=== PATIENT | male | born 1965 | race Caucasian/White ===

== ENCOUNTER 2024-12-02 13:41 | Emergency (ER) | payer OTHER, SELFPAY ==
[2024-12-02 13:48] VITALS: BP 141/99
--- NOTE | 2024-12-02 13:48 | ED.GENMED ---
ED Provider Triage
<Abhi Berkowitz PA-C - Last Filed: 12/02/24 13:50>
-
Patient seen by provider in Triage?: Seen in Triage
Attestation: A medical screening examination has been initiated by a qualified medical provider. Based on the assessment performed at this time, it has been determined that an emergent medical condition may exist and the patient has been informed
that further medical evaluation and possible additional diagnostic testing may be needed.
HPI: 59-year-old male presenting the emergency department for evaluation of flulike symptoms that began this past Saturday evening into Saturday morning. Today patient started to feel little bit worse, syncopized, attempted to go to primary care
provider but was recommended to either go to urgent care or the ER. Patient went to urgent care and was recommended to come immediately to the ER. No workup was done at the urgent care. Patient was given a prescription for doxycycline by primary
care provider but he did not start taking this. Labs, EKG, COVID/flu testing ordered.
GENERAL: Alert , in no apparent distress
EYE: No visual abnormalities.
NECK: Trachea midline
ENT: No visible abnormalities.
LUNGS: No acute respiratory distress
NEUROLOGICAL: Alert and oriented
SKIN: Skin intact. No visible changes.
MUSCULOSKELETAL: Moving extremities normally
PSYCH: Normal and appropriate interaction.
This is a medical evaluation conducted in person to initiate diagnostic evaluation and provide initial therapeutics. Please see further documentation by the treating clinician.
History of Present Illness
<Abhi Berkowitz PA-C - Last Filed: 12/02/24 13:50>
General
Chief Complaint: Fainting/Passed Out
Time Seen by Provider: 12/02/24 15:46
<Alen Lowe MD - Last Filed: 12/02/24 20:18>
History of Present Illness
History of Present Illness:
Patient presents to the emergency department with flulike illness, syncope and dizziness. Has been sick for the past 4 days. Notes chills myalgias cough nasal congestion. He was very lightheaded today and stood up and felt he was going to pass
out. His doctor started him on doxycycline which she has not started taking it.
Phy Exam
<Alen Lowe MD - Last Filed: 12/02/24 20:18>
Physical Exam
Physical Exam:
GENERAL APPEARANCE: Bundled up, uncomfortable appearing
EYES lids/conjunctiva normal
EARS/NOSE/THROAT audible nasal congestion, oropharyngeal exam is normal
HEAD/NECK normocephalic atraumatic, neck is supple.
RESPIRATORY respiratory effort normal, speaks in full sentences, no accessory muscle use. Lungs clear to auscultation without rhonchi, wheezes, rales
CARDIAC Regular rate and rhythm, no edema.
ABDOMINAL Soft, ND/NT. No pulsatile masses on exam, rebound tenderness, Pisano sign or pain over Mcburney's point.
MUSCLES/EXTREMITIES No abnormal range of motion, no swelling.
SKIN Warm, pink and dry. No rashes
NEUROLOGICAL Speech is clear and appropriate. Normal level of consciousness. 5/5 strength in all extremities.
PSYCH Normal mood and affect. Judgement/competence is appropriate
Course
<Abhi Berkowitz PA-C - Last Filed: 12/02/24 13:50>
Orders/Labs/Results
Orders:
Orders
12/02/24 13:42
ECG [Electrocardiogram (*1)] Urgent
Reason for Study: Syncope
EKG- Treatment ONCE
12/02/24 14:05
Basic Metabolic Panel Urgent
COVID-19 Antigen Urgent
Source: Nasal Swab
Complete Blood Count/With Diff Urgent
Influenza A+B Rapid Molecular Urgent
JOSE ELIAS Source: Nasal Swab
Specimen Description:
12/02/24 16:06
0.9% Sodium Chloride 1000 ml [Nss] 1,000 ml IV BOLUS
CR Chest - 2 Views Urgent
Comment:
Reason For Exam: syncope
12/02/24 16:52
Troponin I Urgent
12/02/24 17:25
Acetaminophen [Tylenol] 1,000 mg PO NOW STA
Abnormal Lab Results
12/02/24
14:05
RBC 4.66 L 10^6/uL
(4.70-6.10)
MCH 31.5 H pg
(27.0-31.0)
Absolute Neuts (auto) 6.8 H 10^3/uL
(1.4-6.5)
Absolute Lymphs (auto) 0.5 L 10^3/uL
(1.2-3.4)
Neutrophils % 87.9 H %
(42.2-75.2)
Lymphocytes % 6.7 L %
(20.5-51.1)
Sodium 133 L mmol/L
(135-145)
Glucose 116 H mg/dl
(70-99)
Calcium 8.0 L mg/dl
(8.4-10.2)
12/02/24 14:05
12/02/24 14:05
Vital Signs
Initial and Last Documented VS:
Initial Vital Signs
Temp Pulse Resp BP Pulse Ox
97.7 F 92 18 141/99 97
12/02/24 13:48 12/02/24 13:48 12/02/24 13:48 12/02/24 13:48 12/02/24 13:48
Last Documented Vital Signs
Temp Pulse Resp BP Pulse Ox
97.7 F 92 18 141/99 97
12/02/24 13:48 12/02/24 13:48 12/02/24 13:48 12/02/24 13:48 12/02/24 13:48
<Alen Lowe MD - Last Filed: 12/02/24 20:18>
Orders/Labs/Results
Orders:
Orders
12/02/24 13:42
ECG [Electrocardiogram (*1)] Urgent
Reason for Study: Syncope
EKG- Treatment ONCE
12/02/24 14:05
Basic Metabolic Panel Urgent
COVID-19 Antigen Urgent
Source: Nasal Swab
Complete Blood Count/With Diff Urgent
Influenza A+B Rapid Molecular Urgent
JOSE ELIAS Source: Nasal Swab
Specimen Description:
12/02/24 16:06
0.9% Sodium Chloride 1000 ml [Nss] 1,000 ml IV BOLUS
CR Chest - 2 Views Urgent
Comment:
Reason For Exam: syncope
12/02/24 16:52
Troponin I Urgent
12/02/24 17:25
Acetaminophen [Tylenol] 1,000 mg PO NOW STA
Abnormal Lab Results
12/02/24
14:05
RBC 4.66 L 10^6/uL
(4.70-6.10)
MCH 31.5 H pg
(27.0-31.0)
Absolute Neuts (auto) 6.8 H 10^3/uL
(1.4-6.5)
Absolute Lymphs (auto) 0.5 L 10^3/uL
(1.2-3.4)
Neutrophils % 87.9 H %
(42.2-75.2)
Lymphocytes % 6.7 L %
(20.5-51.1)
Sodium 133 L mmol/L
(135-145)
Glucose 116 H mg/dl
(70-99)
Calcium 8.0 L mg/dl
(8.4-10.2)
12/02/24 14:05
12/02/24 14:05
Vital Signs
Initial and Last Documented VS:
Initial Vital Signs
Temp Pulse Resp BP Pulse Ox
97.7 F 92 18 141/99 97
12/02/24 13:48 12/02/24 13:48 12/02/24 13:48 12/02/24 13:48 12/02/24 13:48
Last Documented Vital Signs
Temp Pulse Resp BP Pulse Ox
97.7 F 92 18 141/99 97
12/02/24 13:48 12/02/24 13:48 12/02/24 13:48 12/02/24 13:48 12/02/24 13:48
<Alen Lowe MD - Last Filed: 12/02/24 20:18>
*Critical Care Note
Total Time (30-74mins, 75-104mins- exclusive of procedures): Not Applicable
ED Attending Note
<Abhi Berkowitz PA-C - Last Filed: 12/02/24 13:50>
-
Portions of this chart may have been created with voice recognition software.� Occasional wrong word or��sound alike� substitutions may have occurred due to the inherent limitations of voice recognition software.
<Alen Lowe MD - Last Filed: 12/02/24 20:18>
ED Attending Note
ED Attending Note:
Patient presents with flulike illness found to have influenza A. Also with episode of syncope and mild chest pain. Suspect dehydration in the setting of viral illness. Will rehydrate with IV fluids, check labs, troponin
Discharge Plan
Departure
Patient Disposition: Home (Routine Discharge)
Date of Disposition: 12/02/24
Time of Disposition: 17:37
Patient with high blood pressure during this ER visit?: Yes
Discharge Problem:
Influenza, Dehydration
Referrals:
UNKNOWN - PT DOES,NOT KNOW [Family Provider] -
Activity Restrictions/Additional Instructions:
Please follow-up with your doctor for recheck and repeat x-ray in the next week. Return to the emergency department with new or worsening symptoms.
Interventions
Interventions:
*Risk Screen - Suicide Last Done: 12/02/24 13:48
*General Assessment Last Done: 12/02/24 13:48
*Neglect/Abuse Screening Last Done: 12/02/24 13:48
*Nursing Disposition Last Done: 12/02/24 18:30
Discharge Date and Time
Discharge Date/Time: 12/02/24 18:30
Print Language: THAI
[2024-12-02 14:27] LABS: % Basophils 0.3 % (0-2); % Immature Granulocytes 0.4 % (0-0.5); % Lymphocytes 6.7 % (20.5-51.1); % Monocytes 4.7 % (1.7-9.3); % Neutrophils 87.9 % (42.2-75.2); Absolute Lymphocytes 0.5 10^3/uL (1.2-3.4); Absolute Monocytes 0.4 10^3/uL (0.1-0.6); Absolute Neutrophils 6.8 10^3/uL (1.4-6.5); Hematocrit 40.8 % (39.0-52.0); Hemoglobin 14.7 g/dL (13.0-18.0); Mean Corpuscular Hgb 31.5 pg (27.0-31.0); Mean Corpuscular Volume 87.6 fL (80.0-94.0); Nucleated Red Blood Cells % 0 % (-); Red Blood Cell Count 4.66 10^6/uL (4.70-6.10); Red Cell Dist. Width 13.2 % (11.5-14.5); White Blood Cell Count 7.7 10^3/uL (4.8-10.8)
[2024-12-02 14:38] LABS: COVID-19 Antigen Negative (Negative)
[2024-12-02 14:40] LABS: Blood Urea Nitrogen 12 mg/dl (9-20); Carbon Dioxide 23 mmol/L (22-30); Chloride 99 mmol/L (98-107); Glucose 116 mg/dl (70-99); Sodium 133 mmol/L (135-145); eGFR > 60.00
[2024-12-02 14:52] LABS: Mean Platelet Volume 10.2 fL (7.4-10.4); Platelet Count 132 10^3/uL (130-400)
[2024-12-02] MEDS: NSS 1000 IV (16:52)
[2024-12-02 17:24] LABS: Troponin I < 0.012 ng/ml
[2024-12-02] MEDS: TYLENOL 1000 MG PO (17:47)
== END 2024-12-02 18:30 | disposition home or self-care (01) ==
LOC: EMR 13:41
PROVIDERS: Physician Assistant Medical; EMERGENCY PHYSICIAN Emergency Medicine
DX: J10.1 Influenza due to other identified influenza virus with other respiratory manifestations (principal); E86.0 Dehydration
CPT/HCPCS: 99284; 96360; 71046; 80048; 84484; 85025; 87502; 87811; 93005

== ENCOUNTER 2025-05-18 12:26 | Inpatient (IN) | payer OTHER, SELFPAY ==
[2025-05-16] VITALS (8 sets, daily range): BP systolic 119–146; BP diastolic 78–93; BMI 28.7; BMI 28.6
--- NOTE | 2025-05-16 15:02 | ED.GENMED ---
History of Present Illness
General
Chief Complaint: Cough
Source: patient
Exam Limitations: none
Time Seen by Provider: 05/16/25 14:13
Nursing documentation reviewed up to this point in time: agreed with
History of Present Illness
History of Present Illness:
Patient to ED with complaint of worsening cough. Symptoms started approx 6 days ago while vacationing in [place]. He completed a zpack today without improvement. Saturday he went to , tested neg for covid, given a nebulaizer treatement. today he
returned to because symptoms were worsening. Sent to ED because of low pulse ox. Pulse ox on room air 90% at rest. Reports fever for the first 2 days, no fever since. Denies any cp/pressure. Coughing up brown secretions. Brought self to ED
for eval.
Past History
Past History
ED Past Medical History: CAD, Hypercholesterolemia and [place] (2020)
ED Past Surgical History: Appendectomy
Social History
Tobacco: Non-smoker
Alcohol: Occasional
Review of Systems
Review of Systems
Allergies reviewed?: Yes
All Other Systems: ROS reviewed and negative except as documented in HPI and ROS
Constitutional: Reports no symptoms
EENT: Reports no symptoms
Respiratory: Reports cough and trouble breathing
Cardiac: Reports no symptoms
ABD/GI: Reports no symptoms
: Reports no symptoms
Musculoskeletal: Reports no symptoms
Skin: Reports no symptoms
Neurological: Reports no symptoms
Psychiatric: Reports no symptoms
Phy Exam
General Physical Exam
General Presentation: mild distress
General age: appears stated age
General Skin: warm
General Habitus: normal
General Mental: alert
Cardiovascular Exam
Cardiovascular Exam: regular rate/rhythm
Pulmonary Exam
Pulmonary Exam: no rales, chest non tender, no rhonchi and other (decreased breathsounds bilateral bases)
Musculoskeletal Exam
Musculoskeletal Exam: neuro vasc intact
Skin Exam
Skin Exam: normal color, warm/dry and no rash
Psychiatric Exam
Psychiatric Exam: normal mood/affect
Course
Orders/Labs/Results
Orders:
Orders
05/16/25 14:58
CR Chest - 2 Views Urgent
Comment:
Reason For Exam: SOB, cough
05/16/25 Dinner
Cholesterol Lowering
At Your Request: Limited Participation
Does patient need a safe tray?: No
Cholesterol Lowering: Sodium, 2 Gram
05/16/25 15:38
COVID-19 Antigen Urgent
Source: Nasal Swab
Complete Blood Count/With Diff Urgent
Comprehensive Metabolic Panel Urgent
Influenza A+B Rapid Molecular Urgent
JOSE ELIAS Source: Nasal Swab
Specimen Description:
05/16/25 17:42
CefTRIAXone [Rocephin] 2,000 mg IV NOW STA
Doxycycline [Vibramycin] 100 mg PO NOW STA
05/16/25 17:48
Sterile Water [Sterile Water For Injection] 20 ml .ROUTE .STK-MED
05/16/25 18:23
Procalcitonin Stat
If negative, will antibiotics be d/c'd or not started: Yes
Does the patient have renal or hepatic impairment?: No
Any recent (w/in 48 hrs) physiologic stress (CPR, rhabdo): No
05/16/25 18:41
Admit/Transfer Patient As Directed
Co-Sign Provider:
Level of Care: Observation services
Assign to:: Medical/Surgical
Physician / Group: Dennis Moctezuma
Diagnosis: PNA vs reactive airways
Code Status As Directed
Resuscitation Status: Full Code
PRN Pain Medication Management As Directed
May give lesser potent ordered pain med per pt: Yes
preference::
Protocol:: Medication orders for pain may be administered in a
manner that supports deferring to patient preference
when the pt is:
- Requesting an ordered lesser potent pain medication.
Least to most potent pain medications are defined
as: acetaminophen < NSAID < tramadol < opioids
(morphine, oxycodone, hydromorphone).
- Requesting a lesser dose of the same medication IF
ORDERED.
- Requesting a less intrusive route of administration
if both routes are prescribed by the provider (PO <
IV).
05/16/25 20:10
Acetaminophen [Tylenol] 650 mg PO Q4HPRN PRN
Enoxaparin Sodium [Lovenox] 40 mg SC QPM
Guaifenesin/Codeine Solution [Robitussin AC] 10 ml PO Q4HPRN PRN
Ipratropium/Albuterol Sulfate [Duoneb] 3 ml INH R QID
Ondansetron Injectable [Zofran] 4 mg IV Q6HPRN PRN
05/16/25 20:10
PULMONARY CONSULT Routine
Consulting Provider: Yohannes Gusman
Was physician already notified: Yes
Reason for consult: PNA vs reactive airways
Activity As Directed
Activity Level: Out of Bed-Early Mobility
Intake/ Output As Directed
Frequency: Per unit guidelines
Vital Signs As Directed
Frequency: Per unit guidelines
Weight As Directed
Frequency: Once
Comment: on admission
O2 Therapy [RESP] Routine
Nasal Cannula Liter Flow: 2 LPM
Titrate/Wean O2 to maintain O2 sat greater than (%): 92
Special Instructions: Wean as tolerated
DX Deep Vein Thrombosis Video Routine
05/17/25 06:00
Basic Metabolic Panel IN AM
Complete Blood Count/With Diff IN AM
05/17/25 08:00
Doxycycline [Vibramycin] 100 mg PO BID
05/17/25 16:00
CefTRIAXone [Rocephin] 1,000 mg IV Q24H
Abnormal Lab Results
05/16/25 05/16/25
15:38 18:23
RBC 4.08 L 10^6/uL
(4.70-6.10)
Hgb 12.8 L g/dL
(13.0-18.0)
Hct 36.0 L %
(39.0-52.0)
MCH 31.4 H pg
(27.0-31.0)
Abs Immat Gran (auto) 0.4 H 10^3/uL
(0-0.05)
Absolute Monos (auto) 0.8 H 10^3/uL
(0.1-0.6)
Immature Gran % 3.9 H %
(0-0.5)
Lymphocytes % 20.2 L %
(20.5-51.1)
Chloride 109 H mmol/L
(98-107)
Glucose 109 H mg/dl
(70-99)
ALT 52 H U/L
(0-50)
Procalcitonin 7.12 H* ng/ml
(0.0-0.25)
05/16/25 15:38
05/16/25 15:38
Vital Signs
Initial and Last Documented VS:
Initial Vital Signs
Temp Pulse Resp BP Pulse Ox
98.7 F 86 18 119/80 95
05/16/25 13:28 05/16/25 13:28 05/16/25 13:28 05/16/25 13:28 05/16/25 13:28
Last Documented Vital Signs
Temp Pulse Resp BP Pulse Ox
98.0 F 75 20 130/80 94
05/16/25 20:15 05/16/25 22:06 05/16/25 21:19 05/16/25 22:06 05/16/25 21:19
*Radiology
Radiology exam reviewed: radiology read reviewed
*Pulse Oximetry
SaO2: 93
Oxygen Mode of Delivery: Room air
Patient hypoxic: yes
Comment: 90% RA at rest
*Critical Care Note
Total Time (30-74mins, 75-104mins- exclusive of procedures): Not Applicable
Update Note
Update Note:
Patient to ED with complaint of worsening cough, low pulse ox. Cough started 6 days ago .Completed course of azythromycin without improvement. CXR tonight with RLL opacity. Pulse ox 90%Ra at rest. He remains afebrile. Will admit to hospitalist.
Iv antibiotics started in ED.
ED Attending Note
-
Portions of this chart may have been created with voice recognition software.� Occasional wrong word or��sound alike� substitutions may have occurred due to the inherent limitations of voice recognition software.
Discharge Plan
Departure
Patient Disposition: Admit
Date of Disposition: 05/16/25
Time of Disposition: 18:00
Presentation/result/management discussed w/ accepting MD/DO: Hospitalist
Patient with high blood pressure during this ER visit?: No
Condition: Fair
Covid-19: Not Applicable
Discharge Problem:
Pneumonia, Hypoxemia
Interventions
Interventions:
*Risk Screen - Suicide Last Done: 05/16/25 13:28
*General Assessment Last Done: 05/16/25 13:28
*Neglect/Abuse Screening Last Done: 05/16/25 13:28
*ED- Fall Risk Assessment Last Done: 05/16/25 14:23
*ED COVID-19 Vaccine History Last Done: 05/16/25 14:23
*Nursing Disposition Last Done: 05/16/25 20:00
ED- Pulmonary Assessment Last Done: 05/16/25 15:44
Discharge Date and Time
Discharge Date/Time: 05/16/25 20:19
[2025-05-16 16:03] LABS: Hematocrit 36.0 % (39.0-52.0); Hemoglobin 12.8 g/dL (13.0-18.0); Mean Corp Hgb Conc. 35.6 g/dL (33.0-37.0); Mean Corpuscular Volume 88.2 fL (80.0-94.0); Platelet Count 196 10^3/uL (130-400); Red Cell Dist. Width 13.4 % (11.5-14.5)
[2025-05-16 16:04] LABS: COVID-19 Antigen Negative (Negative)
[2025-05-16 16:14] LABS: ALT (SGPT) 52 U/L (0-50); AST (SGOT) 36 U/L (17-59); Albumin 3.9 g/dl (3.5-5.0); Alkaline Phosphatase 107 U/L (38-126); Blood Urea Nitrogen 18 mg/dl (9-20); Calcium 8.8 mg/dl (8.4-10.2); Carbon Dioxide 26 mmol/L (22-30); Chloride 109 mmol/L (98-107); Estimated Creatinine Clearance 106 ml/min; Glucose 109 mg/dl (70-99); Potassium 4.0 mmol/L (3.5-5.1); Sodium 140 mmol/L (135-145); Total Protein 6.9 g/dl (6.3-8.2); eGFR > 60.00
[2025-05-16 16:40] LABS: Nucleated Red Blood Cells % 0 % (-)
[2025-05-16] MEDS: ROCEPHIN 2000 MG IV (17:56)
[2025-05-16] MEDS: VIBRAMYCIN 100 MG PO (17:56)
--- NOTE | 2025-05-16 18:02 | HPS.HSE ---
Family Physician
-
Family Physician: Sola Zuleta
Chief Complaint
-
cough
History of Present Illness
History obtained via [employer] [id number]:
59 y/o M with PMHx:
CAD with h/o IN
HLD
who p/w CC cough. The patient has had cough for 6 days. 6 days ago he had a fever of 40 �C. He had brown sputum production 6 days ago. He was then placed on azithromycin which she completed today. Once he started the antibiotic he had no
further sputum production. He reports shortness of breath more notable with exertion. He reports chest pressure when he coughs. He does mention that he has had 'lung issues' since he had COVID. At that time he also had a myocardial infarction.
Denies any other acute complaints.
Medical History
Past Medical History
Past Medical History: Reports Other (as per HPI)
Past Surgical History: Reports Other (N/A)
Social History
Tobacco: Non-smoker
Alcohol: Occasional
Drug: None
Family History
Family History: Not pertinent
Allergies / Home Medications
Allergies reflects when Allergies were last updated in [facility].
Home Medications with original date entered in [facility]
Allergy/Medication List:
Allergies
Allergy/AdvReac Type Severity Reaction Status Date / Time
No Known Allergies Allergy Verified 05/16/25 13:27
Med rec is pending
If medication reconciliation has not been performed, why?: Other
If Other, explain: pending, RN currently obtaining home meds
Review of Systems
-
History Source: Patient
A 12 point ROS was completed and negative except as noted: Yes
Physical Exam
Vital Signs
Vital Signs
Temp Pulse Resp BP Pulse Ox
98.7 F 86 18 133/89 96
05/16/25 13:28 05/16/25 13:28 05/16/25 13:28 05/16/25 16:00 05/16/25 17:00
Physical Exam
General: Other (.)
Laboratory Results
-
05/16/25 15:38
05/16/25 15:38
Laboratory Results
Total Bilirubin 0.6 mg/dl (0.2-1.3) 05/16/25 15:38
AST 36 U/L (17-59) 05/16/25 15:38
ALT 52 U/L (0-50) H 05/16/25 15:38
Alkaline Phosphatase 107 U/L (38-126) 05/16/25 15:38
Impression/Plan
-
Gen: NAD, AAOx3.
Eyes: EOMI, PERRLA, no scleral icterus.
Neck: supple.
CV: RRR, +S1/S2, no m/r/g.
Resp: CTAB, no rales, wheezes, or rhonchi.
Abd: +BS, soft, NT, ND
Skin: No rashes.
Neuro: CN 2-12 intact, non-focal.
Psych: Normal mood and affect.
CXR: Medial right basilar opacity, although similar compared to previous examinations. Considerations include atelectasis, scarring, and/or pneumonia.
Possible R basilar PNA:
-CXR above
-afebrile, no leukocytosis, COVID/Flu NEG
-90% on RA in ER, requiring 2L NC O2
-ED Tx: Rocephin/Doxy
-Duonebs Q6H standing
-Robitussin-AC for cough suppression
-wean NC O2 as tolerated
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
-cont Rocephin/doxy for now pending procal. Considering the pt completed 5 days of azithromycin I doubt the patient has bacterial pneumonia at this time. He likely has reactive airway disease/residual bronchitis at this time.
Other problems:
CAD with h/o IN: awaiting med rec
HLD: awaiting med rec
FULL/Lovenox
[2025-05-16 19:09] LABS: Procalcitonin 7.12 ng/ml (0.0-0.25)
[2025-05-16] MEDS: DUONEB 3 ML INH (21:13)
--- NOTE | 2025-05-16 22:00 | PTCARENOTE ---
Receive pt from ER. Pt alert oriented X3, calm and cooperative. Pt assist X1 to bed. Steady gait. Pt oriented to the room, call chahal within reach. Pt complains about SOB and non productive cough. Pt SpO2=94-97% on 2L NC. VSS (T=98, HR=75, RR=20,
RH=784/80). Pt is Ukranian, Malian speaking. Pt's health HX provided bt daughter Odalis. Assessment and plan of care conducted using retail coverage merchandiser (Patel ([id number])). Will continue to monitor the pt.
[2025-05-16] MEDS: LOVENOX 40 MG SC (22:05)
[2025-05-16] MEDS: LOPRESSOR 25 MG PO (22:06)
[2025-05-16] MEDS: ROBITUSSIN AC 10 ML PO (23:24)
[2025-05-17] MEDS: DUONEB 3 ML INH ×4 (06:13→17:37)
[2025-05-17 07:10] LABS: Hematocrit 36.6 % (39.0-52.0); Hemoglobin 12.9 g/dL (13.0-18.0); Mean Corp Hgb Conc. 35.2 g/dL (33.0-37.0); Mean Corpuscular Volume 88.6 fL (80.0-94.0); Platelet Count 200 10^3/uL (130-400); Red Cell Dist. Width 13.2 % (11.5-14.5)
[2025-05-17 07:36] LABS: Blood Urea Nitrogen 17 mg/dl (9-20); Calcium 8.7 mg/dl (8.4-10.2); Carbon Dioxide 24 mmol/L (22-30); Chloride 109 mmol/L (98-107); Estimated Creatinine Clearance 94 ml/min; Glucose 124 mg/dl (70-99); Nucleated Red Blood Cells % 0 % (-); Potassium 3.8 mmol/L (3.5-5.1); Sodium 139 mmol/L (135-145); eGFR > 60.00
[2025-05-17 07:45] VITALS: BP 128/76
[2025-05-17] MEDS: CRESTOR 10 MG PO (08:03)
[2025-05-17] MEDS: LOPRESSOR 25 MG PO ×2 (08:03→19:49)
[2025-05-17] MEDS: VIBRAMYCIN 100 MG PO ×2 (08:03→19:49)
[2025-05-17] MEDS: ASPIR LOW (ENTERIC COATED) 81 MG PO (08:03)
--- NOTE | 2025-05-17 09:01 | W.PN.HOSP.TC ---
Today's Communication/Plan
-
Continue antibiotics
Assessment / Plan
Assessment / Plan
HPI: 59-year-old male with previous history of CAD, hyperlipidemia presenting to ER for complaints of shortness of breath and cough. He reportedly had the cough for the past 6 days with productive sputum of brown mucus, placed on antibiotics as
an outpatient. He does not feel his shortness of breath was improving. Had chest x-ray completed demonstrating possible pneumonia with follow-up CT demonstrating multifocal opacities in bilateral bases. He feels he has had on and off intermittent
shortness of breath following COVID illness several years ago.
Denies any prior known history of lung disease in the past, essentially lifelong non-smoker. He had less than 1 year smoking history in the . He denies any known exposures. He denies family history of lung disease. He denies seasonal
allergies. He has been living in the [place] for the past 20 to 30 years.
#Acute hypoxic respiratory insufficiency
#Pneumonia, failed outpatient therapy
Pulmonology following, influenza/COVID-negative
Continue Rocephin/doxycycline day 2, bronchodilators
Check urinary strep/Legionella antigens
Currently requiring 1 L of oxygen, down from 2. Wean as tolerated
#Coronary artery disease
Continue aspirin, statin, beta-[place]
DVT prophylaxis�subcu Lovenox
Full code
Total time spent to see the patient on the floor, examine the patient, review data and lab results, discuss treatment plan with patient, nursing staff around 45 minutes.
Physical Exam
General: No acute distress
HEENT: Normocephalic, Atraumatic, EOMI, MMM
Respiratory: Coarse breath sounds with occasional expiratory wheezing
Cardiac: Normal S1/S2, Regular Rate and Rhythm
GI: Soft, Nontender, Nondistended, Normal Bowel Sounds
Extremities: No Clubbing, Cyanosis, or Edema
Neuro: Nonfocal/Grossly Intact
Psych: Calm, Cooperative
Derm: No Visible lesions
Anticipated Discharge: 24 - 48 hours
Subjective/Interval History
-
Date of Service: May 17, 2025
Patient continues to cough, be short of breath. Shortness of breath mildly improved from admission. No fever, no vomiting.
Objective Data
-
Labs:
Laboratory Results
05/17/25
06:24
WBC 8.1
Hgb 12.9 L
Hct 36.6 L
Plt Count 200
Sodium 139
Potassium 3.8
Chloride 109 H
Carbon Dioxide 24
BUN 17
Creatinine 0.9
Glucose 124 H
Calcium 8.7
Vital Signs:
Vital Signs
Temp Pulse Resp BP Pulse Ox
97.5 F 77 16 128/76 94
05/17/25 07:45 05/17/25 08:03 05/17/25 07:45 05/17/25 08:03 05/17/25 07:45
I&O
05/16/25 05/17/25 05/18/25
06:59 06:59 06:59
Intake Total 480 / 480
Balance 480 / 480
--- NOTE | 2025-05-17 09:33 | CON.PUL ---
Consultation
Consultation Request
Date/Time Consultation Requested: 05/17/25
Date/Time Consultation Performed: 05/17/25
Performing Provider: Kelsey
Reason for Consultation: SOB
Medical History
-
History of Present Illness:
Patient is a 59-year-old male with previous history of CAD, hyperlipidemia presenting to ER for complaints of shortness of breath and cough. He reportedly had the cough for the past 6 days with productive sputum of brown mucus, placed on
antibiotics as an outpatient. He does not feel his shortness of breath was improving. Had chest x-ray completed demonstrating possible pneumonia with follow-up CT demonstrating multifocal opacities in bilateral bases. He feels he has had on and
off intermittent shortness of breath following COVID illness several years ago.
Denies any prior known history of lung disease in the past, essentially lifelong non-smoker. He had less than 1 year smoking history in the . He denies any known exposures. He denies family history of lung disease. He denies seasonal
allergies. He has been living in the [facility] for the past 20 to 30 years.
Past Medical History
Past Medical History: Other (see list below)
Social History
Tobacco: Non-smoker
Alcohol: None
Drug: None
Allergies / Home Medications
Allergies
Allergy/AdvReac Type Severity Reaction Status Date / Time
No Known Allergies Allergy Verified 05/16/25 13:27
Home Medications
�Medication �Instructions �Recorded �Confirmed �Last Taken �Type
albuterol sulfate 90 mcg/actuation 2 puff inhalation R BID 05/16/25 05/16/25 05/15/25 History
aerosol inhaler Lung/Breathing Issues
amoxicillin 875 mg tablet 875 mg PO BID Infection 05/16/25 05/16/25 05/16/25 History
aspirin 81 mg tablet,delayed 81 mg PO DAILY Blood Clot 05/16/25 05/16/25 05/16/25 History
release Prevention/Tx
azithromycin 250 mg tablet 250 mg PO DAILY Infection 05/16/25 05/16/25 05/16/25 History
ibuprofen 600 mg tablet 600 mg PO DAILYPRN PRN mild pain 05/16/25 05/16/25 Unknown History
metoprolol tartrate 25 mg tablet 25 mg PO BID Blood Pressure 05/16/25 05/16/25 05/16/25 History
omeprazole 40 mg capsule,delayed 40 mg PO DAILYPRN PRN gerd 05/16/25 05/16/25 Unknown History
release
rosuvastatin 10 mg tablet 10 mg PO DAILY High Cholesterol 05/16/25 05/16/25 05/16/25 History
Review of Systems
-
History Source: Patient
All other systems: Negative unless noted
Vitals / Labs / Diagnostic Testing
Vital Signs
Temp Pulse Resp BP Pulse Ox
97.5 F 77 16 128/76 94
05/17/25 07:45 05/17/25 08:03 05/17/25 07:45 05/17/25 08:03 05/17/25 07:45
Lab Data
05/17/25 06:24
05/17/25 06:24
Microbiology
05/16/25 15:38 Nasal Swab Influenza Types A & B (RICHIE) - Final
Negative for Influenza A & B, NAAT
Negative results must be combined with clinical observations
and patient history.
Nucleic Acid Amplification test (NAAT)performed on the
[employer] platform.
Diagnostic Testing:
Physical Exam
-
HEENT: Normocephalic, Anicteric and Moist Mucous Membranes
Cardiovascular: S1/S2 and Regular Rhythm
Respiratory: Clear and Non-Labored Respirations
GI: Soft and Non Distended
Neurology: Awake, Alert, Oriented and No Motor Deficits
Skin: Warm, Dry and Good Color
General: Comfortable and Other (NAD)
Assessment
-
Patient is a 59-year-old male with previous history of CAD, hyperlipidemia presenting to ER for complaints of shortness of breath and cough. He reportedly had the cough for the past 6 days with productive sputum of brown mucus, placed on
antibiotics as an outpatient. He does not feel his shortness of breath was improving. Had chest x-ray completed demonstrating possible pneumonia with follow-up CT demonstrating multifocal opacities in bilateral bases. He feels he has had on and
off intermittent shortness of breath following COVID illness several years ago. We are consulted for evaluation 05/17/25.
Pneumonia, failed outpatient therapy
Acute hypoxic respiratory failure
Mild anemia
Shortness of breath
Conditions present prior to admission
History of COVID
Primary hypertension
Hyperlipidemia
Reflux
Plan
Has no prior history of O2 use at home
Denies any prior known history of lung disease in the past, essentially lifelong non-smoker.
He had less than 1 year smoking history in the . He denies any known exposures. He denies family history of lung disease.
He denies seasonal allergies. He has been living in the [place] for the past 20 to 30 years.
Suspect patient has multifocal pneumonia that failed outpatient treatment
He is currently on IV antibiotics
CXR/CT obtained indicating basilar predominant findings
Can add p.o. prednisone course as well if shortness of breath is ongoing
History of [place] in the past with hyperlipidemia
No echo for review
Recommend baseline testing
Smoking history noted--overall less than 1 year
Unlikely smoking related lung disease
There could be adult onset asthma following episode of COVID
Will need outpatient pulmonary evaluation in our office for PFTs and 6MWT
Reviewed with patient this could be pursued if patient is not improving
Risk factors assessed for underlying sleep disordered breathing also noted, recommend outpatient PSG/sleep evaluation
We will follow
Diagnostic Data
Chest X-Ray: 05/16/25-Medial right basilar opacity, although similar compared to previous examinations. Considerations include atelectasis, scarring, and/or pneumonia.
12/02/24- Small focus of parenchymal opacity in the medial and anterior aspect of the right lower lobe, main differential considerations of pneumonia and/or atelectasis. Pericardial fat pad is considered as a differential possibility, felt to be less
likely.
CT Scan: CHEST 05/17/25- Opacities, predominantly groundglass in the right middle lobe, lingula, right lower lobe and left lower lobe with some accompanying interstitial thickening, nonspecific, possibly inflammatory/infectious.
Echo:
PFT's:
Reports and relevant images were personally reviewed.
Total time spent on this consultation __76__ minutes which includes review of history, physical exam, medications, laboratory data, personal review of imaging, extensive review of outpatient records, discussion with care team and respiratory
therapy. Prolonged discussion using language line ham passer for Taiwanese-only speaking patient.
[2025-05-17 15:12] VITALS: O2SAT 91; O2SAT 95
[2025-05-17 15:50] VITALS: BP 115/69
[2025-05-17] MEDS: FLUSH (NSS) 1 FLUSH IV (16:09)
[2025-05-17] MEDS: ROCEPHIN 1000 MG IV (16:09)
[2025-05-17] MEDS: STERILE WATER FOR INJECTION 10 ML IV (16:09)
--- NOTE | 2025-05-17 16:35 | PTCARENOTE ---
Pt AAO x3, GRAY well, ambulatory in room/to BR; prosper well. Pt speaks Zambian, understands some Sri Lankan, utilizing language line with good effect. VSS. Currently on room air- pulse ox 97%, pt with (+) slight SCHWAB; denies SOB; has occ dry cough.
Abd soft, rounded, prosper :PO well. Voids in BR; aware of need for urine specimen. Afebrile; skin warm and dry. Resting in bed at present. Will continue to monitor.
--- NOTE | 2025-05-17 16:38 | CM ---
Met with patient (with information technology instructor) for assessment. Patient stated that he lives alone in a one story apartment with no steps to enter. He described himself as independent with his ADLs, personal care, dressing and bathing. He can do household
chores, cook, clean and do laundry. He drives and can get to all of his appointments and does all of his own shopping. He doesn't have any DME. He has never had VN. He has not been to a SNF.
He has a supportive daughter.
Patient has a prescription plan and uses, [facility] for all of his medications.
Patient's PCP is Sola Zuleta.
Plan: Case management will continue to follow and assist with discharge planning. OBS letter reviewed and signed. Patient will return home when stable.
[2025-05-17] MEDS: LOVENOX 40 MG SC (17:46)
[2025-05-17 23:24] VITALS: BP 130/83
[2025-05-18 08:07] VITALS: BP 134/82
[2025-05-18] MEDS: DUONEB 3 ML INH ×3 (08:23→19:37)
[2025-05-18] MEDS: LOPRESSOR 25 MG PO ×2 (08:33→20:07)
[2025-05-18] MEDS: VIBRAMYCIN 100 MG PO ×2 (08:33→20:07)
[2025-05-18] MEDS: ASPIR LOW (ENTERIC COATED) 81 MG PO (08:34)
[2025-05-18] MEDS: CRESTOR 10 MG PO (08:34)
--- NOTE | 2025-05-18 09:31 | W.PN.PUL3 ---
Today's Communication / Plan
-
Urine strep Ag +, narrow abx for presumed Strep PNA
Add PO prednisone for ongoing SOB
Repeat CXR in AM
All questions answered using [place]an trust manager assistant
Assessment
-
Patient is a 59-year-old male with previous history of CAD, hyperlipidemia presenting to ER for complaints of shortness of breath and cough. He reportedly had the cough for the past 6 days with productive sputum of brown mucus, placed on
antibiotics as an outpatient. He does not feel his shortness of breath was improving. Had chest x-ray completed demonstrating possible pneumonia with follow-up CT demonstrating multifocal opacities in bilateral bases. He feels he has had on and
off intermittent shortness of breath following COVID illness several years ago. We are consulted for evaluation 05/17/25.
Strep Pneumonia, failed outpatient therapy, Ur Ag+
Acute hypoxic respiratory failure
Mild anemia
Shortness of breath
Conditions present prior to admission
History of COVID
Primary hypertension
Hyperlipidemia
Reflux
Plan
Has no prior history of O2 use at home
Denies any prior known history of lung disease in the past, essentially lifelong non-smoker.
He had less than 1 year smoking history in the . He denies any known exposures. He denies family history of lung disease.
He denies seasonal allergies. He has been living in the [place] for the past 20 to 30 years.
Suspect patient has multifocal pneumonia that failed outpatient treatment
He is currently on IV antibiotics
Urine Ag + strep, narrow abx
CXR/CT obtained indicating basilar predominant findings
Will add p.o. prednisone course as patient notes no improvement
Repeat CXR in AM
History of [place] in the past with hyperlipidemia
No echo for review
Recommend baseline testing
Smoking history noted--overall less than 1 year
Unlikely smoking related lung disease
There could be adult onset asthma following episode of COVID
Will need outpatient pulmonary evaluation in our office for PFTs and 6MWT
Reviewed with patient this could be pursued if patient is not improving--this was reviewed again today
Risk factors assessed for underlying sleep disordered breathing also noted, recommend outpatient PSG/sleep evaluation
We will follow
Diagnostic Data
Chest X-Ray: 05/16/25-Medial right basilar opacity, although similar compared to previous examinations. Considerations include atelectasis, scarring, and/or pneumonia.
12/02/24- Small focus of parenchymal opacity in the medial and anterior aspect of the right lower lobe, main differential considerations of pneumonia and/or atelectasis. Pericardial fat pad is considered as a differential possibility, felt to be less
likely.
CT Scan: CHEST 05/17/25- Opacities, predominantly groundglass in the right middle lobe, lingula, right lower lobe and left lower lobe with some accompanying interstitial thickening, nonspecific, possibly inflammatory/infectious.
Echo:
PFT's:
Reports and relevant images were personally reviewed.
Total time spent on this consultation __54__ minutes which includes review of history, physical exam, medications, laboratory data, personal review of imaging, extensive review of outpatient records, discussion with care team and respiratory
therapy. Prolonged discussion using language line trust manager assistant for Sierra Leonean-only speaking patient.
Subjective Data
-
Date of Service:
Date of Service: May 18, 2025
Chief Complaint: Pulmonary Follow Up
Subjective:
Feels SOB is ongoing, no improvement even with nebs
S[place] Leonean trust manager assistant used with video call
Objective Data
Data Reviewed
Vital Signs / I&O / Oxygen:
Vital Signs
Temp Pulse Resp BP Pulse Ox
98.5 F 77 16 134/82 95
05/18/25 08:07 05/18/25 08:33 05/18/25 08:25 05/18/25 08:33 05/18/25 08:25
Intake and Output
05/17/25 05/18/25 05/19/25
06:59 06:59 06:59
Intake Total 480 / 480 960 / 960
Balance 480 / 480 960 / 960
SaO2 95
Nasal Cannula flow liters per 1
minute
Physical Exam
General: Comfortable and Other (NAD)
HEENT: Normocephalic, Anicteric and Moist Mucous Membranes
Cardiovascular: S1-S2 and Regular Rhythm
Respiratory: Clear (slight tightness with inhale, no wheeze) and Non-Labored Respirations
GI: Soft, Non Distended and Non Tender
Neurology: Awake, Alert, Oriented and No Motor Deficits
Skin: Warm, Dry and Good Color
Labs/Micro/Reports
Lab Data
05/17/25 06:24
05/17/25 06:24
Microbiology
05/17/25 19:58 Urine Legionella Urinary Antigen - Final
Negative for Legionella pneumophila Serogroup 1 antigen.
A negative result does not rule out the possiblity of
Legionella infection due to other serogroups or species of
Legionella. Clinical correlation is recommended.
05/17/25 19:58 Urine Streptococcus pneumoniae Antigen (M - Final
Positive for Strep pneumo Ag
05/16/25 15:38 Nasal Swab Influenza Types A & B (RICHIE) - Final
Negative for Influenza A & B, NAAT
Negative results must be combined with clinical observations
and patient history.
Nucleic Acid Amplification test (NAAT)performed on the
[employer] platform.
[2025-05-18] MEDS: DELTASONE 40 MG PO (12:51)
--- NOTE | 2025-05-18 13:39 | W.PN.HOSP.TC ---
Today's Communication/Plan
-
Echo, lower extremity Doppler, D-dimer
IV antibiotics
Home O2 assessment
Assessment / Plan
Assessment / Plan
HPI: 59-year-old male with previous history of CAD, hyperlipidemia presenting to ER for complaints of shortness of breath and cough. He reportedly had the cough for the past 6 days with productive sputum of brown mucus, placed on antibiotics as
an outpatient. He does not feel his shortness of breath was improving. Had chest x-ray completed demonstrating possible pneumonia with follow-up CT demonstrating multifocal opacities in bilateral bases. He feels he has had on and off intermittent
shortness of breath following COVID illness several years ago.
Denies any prior known history of lung disease in the past, essentially lifelong non-smoker. He had less than 1 year smoking history in the . He denies any known exposures. He denies family history of lung disease. He denies seasonal
allergies. He has been living in the [place] for the past 20 to 30 years.
#Acute hypoxic respiratory insufficiency
#Pneumonia, failed outpatient therapy
Overall improved and weaned off oxygen supplementation while at rest.
Ongoing complaints of persistent cough and chest pressure
Noted positive for strep pneumonia antigen
Increase activity and check ambulatory pulse ox prior to discharge
#Coronary artery disease
Continue aspirin, statin, beta-chico
Patient reports myocardial infarction around COVID infection.
No history of catheterization or endovascular intervention.
Reportedly recent stress test with no abnormalities
He brings complaining of exertional dyspnea prior to onset of this episode
For completeness of workup will check echocardiogram, lower extremity Doppler and D-dimer.
DVT prophylaxis�subcu Lovenox
Full code
Total time spent to see the patient on the floor, examine the patient, review data and lab results, discuss treatment plan with patient, nursing staff around 45 minutes.
Anticipated Discharge: 24 - 48 hours
Subjective/Interval History
-
Date of Service: May 18, 2025
Objective Data
-
Vital Signs:
Vital Signs
Temp Pulse Resp BP Pulse Ox
98.5 F 77 16 134/82 95
05/18/25 08:07 05/18/25 08:33 05/18/25 08:25 05/18/25 08:33 05/18/25 11:42
I&O
05/17/25 05/18/25 05/19/25
06:59 06:59 06:59
Intake Total 480 / 480 960 / 960
Balance 480 / 480 960 / 960
Physical Exam
-
General: Well Developed and No Apparent Distress
HEENT: Normocephalic, Atraumatic and Moist Mucous Membranes
Respiratory: Clear to Auscultation
Cardiac: Regular Rhythm and S1/S2; Negative Murmur, Rub or Gallop
GI: Soft, Nontender, Nondistended and Normal Bowel Sounds; Negative Organomegaly
Rectal: Deferred by Provider
Musculoskeletal: No Clubbing, No Cyanosis and No Edema
Skin: Negative Rash
Neuro: Nonfocal/Grossly Intact
[2025-05-18 14:06] LABS: D-Dimer 0.76 ug/mlFEU (0.00-0.50)
[2025-05-18] MEDS: DUONEB INH (15:30)
[2025-05-18 16:03] VITALS: BP 132/80
[2025-05-18] MEDS: STERILE WATER FOR INJECTION 10 ML IV (17:18)
[2025-05-18] MEDS: LOVENOX 40 MG SC (17:19)
[2025-05-18] MEDS: ROCEPHIN 1000 MG IV (17:19)
[2025-05-18] MEDS: ROBITUSSIN AC 10 ML PO (21:31)
[2025-05-18 23:03] VITALS: BP 121/72
[2025-05-19 07:40] VITALS: BP 118/70
[2025-05-19] MEDS: DUONEB 3 ML INH ×3 (07:52→15:18)
[2025-05-19] MEDS: ASPIR LOW (ENTERIC COATED) 81 MG PO (08:40)
[2025-05-19] MEDS: LOPRESSOR 25 MG PO (08:41)
[2025-05-19] MEDS: DELTASONE 40 MG PO (08:41)
[2025-05-19] MEDS: CRESTOR 10 MG PO (08:41)
[2025-05-19] MEDS: VIBRAMYCIN 100 MG PO (08:41)
--- NOTE | 2025-05-19 09:35 | PN.CDI ---
CDI
- -
CDI:
Physician Documentation Request
Admit Date: 05/18/25 12:26
Dear Doctor Jada,
Patient admitted for pneumonia.
05/16 PCN: 'Pt complains about SOB and non productive cough. Pt SpO2=94-97% on 2L NC.'
05/18 Pulmonary PN: 'Strep Pneumonia, failed outpatient therapy, Ur Ag+, Acute hypoxic respiratory failure'
05/18 Hospitalist PN: 'Acute hypoxic respiratory insufficiency'
Clarify which of the following accurately represents the patient's respiratory status:
Acute hypoxic respiratory failure
Acute hypoxic respiratory insufficiency
Other
Additional information for Respiratory Failure:
Recognized criteria for Respiratory Failure (Source: Titus Angeles. 2018September 23.
Documentation tips: Acute Respiratory Failure, The Hospitalist.)
ABGs: (1 or more) Symptoms Please indicate type if known
1. p)2 <60 or RA SPO2 <91% on RA 1. Tachypnea, SOB, dyspnea Hypoxic
2. pCO2 >45 and pH <7.35 2. Use of accessory muscles Hypercapnic
3. pO2 decrease of pCO2 increase by 3. Pallor or cyanosis Hypoxic and Hypercapnic
10 mmHg from baseline if known 4. Anxiety or restlessness Unable to determine
4. P/F Ratio (pO2/FiO2)nless than 300 5. Unable to speak in full sentences
Use of terms such as suspected, likely, concern for, or probable (associated with a specific diagnosis that is being evaluated, monitored, or treated as if it exists) are acceptable and can be coded in the inpatient setting, when documented at the
time of discharge.
Thank you,
Sarai Juares RN, BSN
CDI Specialist
Available via [place] text
Please use your independent medical judgment in providing your response.
--- NOTE | 2025-05-19 11:21 | W.PN.PUL3 ---
Today's Communication / Plan
-
Continue prednisone taper
CTA to rule out PE
Encouraged out of bed, PT/ambulation, he is currently stable on room air
We will arrange outpatient follow-up with PFTs
Discharge planning otherwise per team
Assessment
-
Patient is a 59-year-old male with previous history of CAD, hyperlipidemia presenting to ER for complaints of shortness of breath and cough. He reportedly had the cough for the past 6 days with productive sputum of brown mucus, placed on
antibiotics as an outpatient. He does not feel his shortness of breath was improving. Had chest x-ray completed demonstrating possible pneumonia with follow-up CT demonstrating multifocal opacities in bilateral bases. He feels he has had on and
off intermittent shortness of breath following COVID illness several years ago. We are consulted for evaluation 05/17/25.
Strep Pneumonia, failed outpatient therapy, Ur Ag+
Acute hypoxic respiratory failure
Mild anemia
Shortness of breath
Conditions present prior to admission
History of COVID
Primary hypertension
Hyperlipidemia
Reflux
Plan
Has no prior history of O2 use at home
Denies any prior known history of lung disease in the past, essentially lifelong non-smoker.
He had less than 1 year smoking history in the . He denies any known exposures. He denies family history of lung disease.
He denies seasonal allergies. He has been living in the [place] for the past 20 to 30 years.
Suspect patient has multifocal pneumonia that failed outpatient treatment
He is currently on IV antibiotics
Urine Ag + strep, narrow abx
CXR/CT obtained indicating basilar predominant findings
Continue prednisone taper
Repeat CXR in AM--showing similar basilar findings
History of [place] in the past with hyperlipidemia
No echo for review
Recommend baseline testing
Smoking history noted--overall less than 1 year
Unlikely smoking related lung disease
There could be adult onset asthma following episode of COVID
Will need outpatient pulmonary evaluation in our office for PFTs and 6MWT
Reviewed with patient this could be pursued if patient is not improving--this was reviewed again today
Risk factors assessed for underlying sleep disordered breathing also noted, recommend outpatient PSG/sleep evaluation
Outpatient follow-up to be arranged
Diagnostic Data
Chest X-Ray: 05/16/25-Medial right basilar opacity, although similar compared to previous examinations. Considerations include atelectasis, scarring, and/or pneumonia.
12/02/24- Small focus of parenchymal opacity in the medial and anterior aspect of the right lower lobe, main differential considerations of pneumonia and/or atelectasis. Pericardial fat pad is considered as a differential possibility, felt to be less
likely.
CT Scan: CHEST 05/17/25- Opacities, predominantly groundglass in the right middle lobe, lingula, right lower lobe and left lower lobe with some accompanying interstitial thickening, nonspecific, possibly inflammatory/infectious.
Echo:
PFT's:
Reports and relevant images were personally reviewed.
Total time spent on this consultation __54__ minutes which includes review of history, physical exam, medications, laboratory data, personal review of imaging, extensive review of outpatient records, discussion with care team and respiratory
therapy. Prolonged discussion using language line auto body mechanic for Ukrainian-only speaking patient.
Subjective Data
-
Date of Service:
Date of Service: May 19, 2025
Chief Complaint: Pulmonary Follow Up
Subjective:
Better today, he does feel ongoing shortness of breath but this is improved
No new complaints, stable on room air
Objective Data
Data Reviewed
Vital Signs / I&O / Oxygen:
Vital Signs
Temp Pulse Resp BP Pulse Ox
98.0 F 70 18 118/70 93
05/19/25 07:40 05/19/25 08:41 05/19/25 07:54 05/19/25 08:41 05/19/25 09:00
Intake and Output
05/18/25 05/19/25 05/20/25
06:59 06:59 06:59
Intake Total 960 / 960 960 / 960
Balance 960 / 960 960 / 960
SaO2 93
Nasal Cannula flow liters per 1
minute
Physical Exam
General: Comfortable and Other (NAD)
HEENT: Normocephalic, Anicteric and Moist Mucous Membranes
Cardiovascular: S1-S2 and Regular Rhythm
Respiratory: Clear (slight tightness with inhale, no wheeze) and Non-Labored Respirations
GI: Soft, Non Distended and Non Tender
Neurology: Awake, Alert, Oriented and No Motor Deficits
Skin: Warm, Dry and Good Color
Labs/Micro/Reports
Lab Data
05/17/25 06:24
05/17/25 06:24
Microbiology
05/17/25 19:58 Urine Legionella Urinary Antigen - Final
Negative for Legionella pneumophila Serogroup 1 antigen.
A negative result does not rule out the possiblity of
Legionella infection due to other serogroups or species of
Legionella. Clinical correlation is recommended.
05/17/25 19:58 Urine Streptococcus pneumoniae Antigen (M - Final
Positive for Strep pneumo Ag
05/16/25 15:38 Nasal Swab Influenza Types A & B (RICHIE) - Final
Negative for Influenza A & B, NAAT
Negative results must be combined with clinical observations
and patient history.
Nucleic Acid Amplification test (NAAT)performed on the
[employer] platform.
--- NOTE | 2025-05-19 15:23 | CM ---
Patient functioning at baseline. Still requiring acute care.
Plan: Case management will continue to follow and assist with discharge planning. Home when stable.
[2025-05-19 15:35] VITALS: BP 118/77
[2025-05-19] MEDS: ROCEPHIN 1000 MG IV (15:55)
[2025-05-19] MEDS: STERILE WATER FOR INJECTION 10 ML IV (15:56)
--- NOTE | 2025-05-19 17:04 | W.DCSUMMARY ---
Discharge Summary
Discharge Data
Date of Admission: 05/18/25
Date of Discharge: 05/19/25
-
Pending Results: No
Hospital Course
Patient is a 59 years old male with history of CAD, coronary was admitted for worsening of shortness of breath and found to have acute hypoxic respiratory insufficiency secondary to bilateral pneumonia. Patient was admitted to internal medicine
service with pulmonology consultation.
His CT scan of the chest showed bilateral infiltrates
Blood cultures were negative.
Sputum was positive for streptococcal antigen.
Patient was placed on ceftriaxone and doxycycline. Noticeably he had no or minimal response to outpatient tabetic regimen initially with amoxicillin/colonic acid and Zithromax. Over the course of the next 48 hours patient dyspnea improved and he
was weaned off oxygen supplementation.
Additional testing including echocardiogram showed normal bilateral ventricular function. Lower extremity Doppler was negative.
Given patient complains of persistent exertional dyspnea and mildly elevated D-dimer value patient had a CT scan of the chest PE protocol which was negative for pulmonary embolism, although confirming bilateral right greater than left pneumonia.
Overall given patient's improvement plan is to transition to oral antibiotics for additional 5 days as well as steroid taper.
Outpatient pulmonology follow-up had been established.
Discharge Plan
-
Patient Disposition: Home (Routine Discharge)
Discharge Diagnosis/Procedures: Bilateral pneumonia
Condition: Good
Diet: Regular
Referrals:
Sola Zuleta MD [Family Provider, Internal Medicine]
Germaine Cole DO [Active, Pulmonary Medicine]
Referral Note: 3-4 weeks, PFTs
Prescriptions:
New
doxycycline hyclate 100 mg Capsule
100 mg PO BID Qty: 10 0RF
cefuroxime axetil 500 mg tablet
500 mg PO BID Qty: 10 0RF
prednisone 10 mg tablet
10 mg PO DIRECTED Qty: 20 0RF
Rx Instructions:
Start with 40 mg and taper by 10 mg on every 3d day.
Continued
omeprazole 40 mg capsule,delayed release(DR/EC)
40 mg PO DAILYPRN PRN (Reason: gerd)
aspirin 81 mg tablet,delayed release (DR/EC)
81 mg PO DAILY
albuterol sulfate 90 mcg/actuation HFA aerosol inhaler
2 puff INHALATION R BID
rosuvastatin 10 mg tablet
10 mg PO DAILY
metoprolol tartrate 25 mg tablet
25 mg PO BID
Discontinued
azithromycin 250 mg tablet
250 mg PO DAILY
amoxicillin 875 mg tablet
875 mg PO BID
Patient Comments:
started on 05/14/25
ibuprofen 600 mg tablet
600 mg PO DAILYPRN PRN (Reason: mild pain)
Discharge Orders:
Discharge Patient (As Directed); Ordered 05/19/25
Ordered By: Stephen Elias
Discharge Date and Time
Print Language: ARGENTINE
== END 2025-05-19 17:46 | disposition home or self-care (01) | DRG 195 ==
LOC: 4 EAST ACU 12:26
PROVIDERS: Nurse Practitioner; ADMITTING PHYSICIAN Internal Medicine; ATTENDING PHYSICIAN Internal Medicine; EMERGENCY PHYSICIAN Emergency Medicine; FAMILY PHYSICIAN Internal Medicine; OTHER PHYSICIAN Internal Medicine
DX: J15.4 Pneumonia due to other streptococci (principal); I25.10 Atherosclerotic heart disease of native coronary artery without angina pectoris; D64.9 Anemia, unspecified; Z86.16 Personal history of COVID-19; I10 Essential (primary) hypertension; Z87.891 Personal history of nicotine dependence; I25.2 Old myocardial infarction; E78.00 Pure hypercholesterolemia, unspecified; K21.9 Gastro-esophageal reflux disease without esophagitis; Z79.82 Long term (current) use of aspirin; Z79.899 Other long term (current) drug therapy; R09.02 Hypoxemia
CPT/HCPCS: 71046; 71250; 71275; 80048; 80053; 84145; 85025; 85379; 87449; 87502; 87811; 87899; 93306; 93970; 94640; 94761; 96374; 99285; Q9967